=== PATIENT | female | born 1960 | race Caucasian/White ===

== ENCOUNTER 2020-02-26 14:12 | Outpatient (CLI) | payer OTHER, SELFPAY ==
[2020-02-26 14:44] LABS: Basophils Absolute Auto 0.1 K/mm3 (0.0-0.1); Basophils Percent Auto 0.8 % (0.2-1.2); Eosinophils Absolute Auto 0.2 K/mm3 (0-0.3); Eosinophils Percent Auto 2.8 % (0-4.4); Hematocrit 41.1 % (37.0-47.0); Hemoglobin 13.4 g/dL (12.0-15.0); Immature Granulocyte Absolute 0.02 K/mm3 (0.00-0.031); Immature Granulocyte Percent A 0.3 % (0-0.5); Lymphocytes Absolute Auto 2.61 K/mm3 (0.9-3.2); Mean Corpuscular HGB Conc 32.6 g/dl (32-36); Mean Corpuscular Hemoglobin 30.9 pg (26-34); Mean Corpuscular Volume 94.9 fl (80-100); Mean Platelet Volume 9.9 fl (7.4-10.4); Monocytes Absolute Auto 0.6 K/mm3 (0.1-0.6); Monocytes Percent Auto 7.9 % (2.6-8.5); Neutrophils Absolute Auto 3.8 K/mm3 (1.3-6.7); Neutrophils Percent Auto 52.2 % (45.5-73.1); Platelet Count Result 243 k/mm3 (150-375); Red Blood Count 4.33 M/mm3 (4.2-5.4); Red Cell Distribution Width 13.9 % (11.5-14.5); White Blood Count 7.3 K/mm3 (4.5-10.0)
[2020-02-26 14:49] LABS: Alanine Aminotransferase 30 U/L (4-35); Albumin Level 4.4 g/dL (3.5-5.1); Alkaline Phosphatase 80 U/L (38-126); Amylase 65 U/L (30-110); Aspartate Amino Transferase 34 U/L (14-36); Bilirubin,Total 0.3 mg/dL (0.2-1.3); Blood Urea Nitrogen 12 mg/dL (7-17); Calcium 9.2 mg/dL (8.4-10.2); Carbon Dioxide 29 mmol/L (22-30); Chloride 104 mmol/L (98-107); Estimated Glomerular Filt Rate > 60; Glucose 107 mg/dL (65-105); Lipase 71 U/L (23-300); Potassium 3.7 mmol/L (3.4-5.0); Sodium 142 mmol/L (137-145)
== END 2020-02-26 14:13 | disposition home or self-care (01) ==
PROVIDERS: PCP Family Medicine; Visit Provider Nurse Practitioner Family
DX: R10.11 Right upper quadrant pain (principal)
CPT/HCPCS: 36415; 80053; 82150; 83690; 85025

== ENCOUNTER 2020-03-25 10:34 | Outpatient (CLI) | payer OTHER, SELFPAY ==
--- NOTE | ~2020-03-25 | NM_ITS ---
EXAMINATION: NM hepatobiliary w pharm DATE: 03/25/2020 12:56 INDICATION: Other specified diseases of gallbladder. COMPARISON: Hepatobiliary scintigraphy 10/30/2013, CT abdomen and pelvis 03/28/2018 TECHNIQUE: 5.5 mCi Tc-99m mebrofenin (Choletec) was administered intravenously. Scintigraphic images of the abdomen were obtained for one hour. Then, 2 mcg sincalide (Kinevac) IV was administered, and imaging was continued for 30 minutes. FINDINGS: There is normal clearance of radiotracer from the blood pool. There is homogeneous tracer u ptake by the liver. Activity progresses to the bowel and gallbladder. Gallbladder ejection fraction (GBEF) was 89%. Note that most patients with gallbladder dysfunction have GBEF < 35%, which overlaps with the broad normal range of 10-90%. IMPRESSION: 1. Normal hepatobiliary scintigraphy. Reviewed, dictated and finalized at location A.
== END 2020-03-25 10:35 | disposition home or self-care (01) ==
PROVIDERS: PCP Family Medicine; Visit Provider Family Medicine
DX: K82.8 Other specified diseases of gallbladder (principal); R10.11 Right upper quadrant pain
CPT/HCPCS: 78227; A9537; J2805

== ENCOUNTER 2020-04-25 10:44 | Outpatient (CLI) | payer OTHER, SELFPAY ==
--- NOTE | ~2020-04-25 | MR_ITS ---
EXAMINATION: MR wrist LT wo con DATE: 04/25/2020 12:03 INDICATION: Left wrist pain post fall. Suspicion for fracture. TECHNIQUE: Magnetic resonance imaging (MRI) of the left wrist was performed without intravenous contr ast. Sequences performed include axial PD-weighted FSE and PD-weighted FS FSE, coronal PD-weighted FS FSE and T1-weighted SE, and sagittal PD-weighted FS FSE and PD-weighted FSE. COMPARISON: None FINDINGS: Intrinsic ligaments: Increased signal of less than fluid intensity at the radial side of the central membranous portion an d volar component of the scapholunate ligament consistent with partial tear. The dorsal component rem ains normal. The lunotriquetral ligament is normal. Triangular fibrocartilage complex (TFCC): The radial, foveal and styloid attachments of the triangular fibrocartilage complex as well as the do rsal and volar radioulnar ligaments are normal. There is increased signal consistent with partial tea r extending into the ulnar/volar aspect of the central fibrocartilaginous disc near the origin of the intact lunotriquetral ligament. The ulnar collateral ligament and meniscal homologue are normal. The extensor carpi ulnaris tendon sheath is normal. Extensor wrist: Extensor tendons of the wrist are normal. No tenosynovitis. Flexor wrist: The flexor tendons of the wrist are normal. No abnormality in the carpal tunnel with normal median n erve. Guyon's canal: Guyon's canal including the ulnar nerve and artery are normal. Bones/other: Nondisplaced transverse fracture across the scaphoid waist. Bone alignment is normal. No abnormal sig nal in the proximal pole to suggest secondary osteonecrosis. Otherwise normal marrow signal with no o ther fractures or pathologic marrow replacing process. Mild osteoarthritis at the triscaphe joint. Re maining joint spaces are relatively preserved. IMPRESSION: 1. Nondisplaced transverse fracture at the scaphoid waist. 2. Partial tear of the central fibrocartilaginous disc of the triangular fibrocartilage complex. 3. Partial tear of the volar and central components of the scapholunate ligament. 4. Mild triscaphe osteoarthritis. Reviewed, dictated and finalized at location B. IMPRESSION: 1. Nondisplaced transverse fracture at the scaphoid waist. 2. Partial tear of the central fibrocartilaginous disc of the triangular fibroc artilage complex. 3. Partial tear of the volar and central components of the scapholunate ligamen t. 4. Mild triscaphe osteoarthritis.
== END 2020-04-25 10:45 | disposition home or self-care (01) ==
PROVIDERS: PCP Family Medicine; Visit Provider Nurse Practitioner Family
DX: S62.009A Unspecified fracture of navicular [scaphoid] bone of unspecified wrist, initial encounter for closed fracture (principal); S63.592A Other specified sprain of left wrist, initial encounter; M19.032 Primary osteoarthritis, left wrist
CPT/HCPCS: 73221

== ENCOUNTER 2020-06-15 10:19 | Emergency (ER) | payer OTHER, SELFPAY ==
--- NOTE | ~2020-06-15 | XR_ITS ---
XR abdomen/kub 1V 06/15/2020 10:59 Indication: Abdomen pain. Procedure: KUB Comparison: 01/08/2014 Findings: Nonobstructive bowel gas pattern. Moderate colonic fecal loading. There are pelvic phleboli ths. No renal stones are visualized. Mild lumbar spondylosis with levoscoliosis. No acute osseous abn ormality. Impression: 1: No acute abdominal abnormality. Reviewed, dictated and finalized at location B. Impression: 1: No acute abdominal abnormality.
[2020-06-15 10:26] VITALS: BP 160/92; PULSE 88; RESP 16; TEMP 36.1; O2SAT 99
[2020-06-15 10:45] LABS: Basophils Absolute Auto 0.1 K/mm3 (0.0-0.1); Basophils Percent Auto 0.7 % (0.2-1.2); Eosinophils Absolute Auto 0.2 K/mm3 (0-0.3); Eosinophils Percent Auto 2.6 % (0-4.4); Hematocrit 41.6 % (37.0-47.0); Hemoglobin 14.1 g/dL (12.0-15.0); Immature Granulocyte Absolute 0.02 K/mm3 (0.00-0.031); Immature Granulocyte Percent A 0.3 % (0-0.5); Lymphocytes Absolute Auto 2.83 K/mm3 (0.9-3.2); Lymphocytes Percent Auto 38.9 % (18.3-44.2); Mean Corpuscular HGB Conc 33.9 g/dl (32-36); Mean Corpuscular Hemoglobin 30.6 pg (26-34); Mean Corpuscular Volume 90.2 fl (80-100); Mean Platelet Volume 9.7 fl (7.4-10.4); Monocytes Absolute Auto 0.4 K/mm3 (0.1-0.6); Neutrophils Absolute Auto 3.8 K/mm3 (1.3-6.7); Neutrophils Percent Auto 51.5 % (45.5-73.1); Platelet Count Result 250 k/mm3 (150-375); Red Blood Count 4.61 M/mm3 (4.2-5.4); Red Cell Distribution Width 13.6 % (11.5-14.5); White Blood Count 7.3 K/mm3 (4.5-10.0)
--- NOTE | 2020-06-15 10:51 | ED.ABDPAIN ---
HPI - Abdominal Pain General Chief Complaint: Abdominal Pain Stated Complaint: Right flank/rib pain Time Seen by Provider: 06/15/20 10:29 Source: patient and old records reviewed Mode of arrival: ambulatory Limitations: no limitations History of Present Illness HPI narrative: Patient is a 60-year-old female who presents to emergency department for evaluation of lower abdominal pain coupled with constipation and dysuria patient has had the symptoms ongoing for some time now patient on arrival to emergency department is resting comfortably in the room in no distress patient has been trying [id number] medications with minimal improvement for constipation patient notes some mild nausea but denies any emesis rectal bleeding melena or URI symptoms and on arrival is in the room in no distress and does not appear uncomfortable pain is localized to the lower quadrants of the abdomen Related Data Home Medications Medication Instructions Recorded Confirmed gabapentin 06/15/20 Allergies Allergy/AdvReac Type Severity Reaction Status Date / Time clindamycin Allergy Mild Dyspnea / Verified 06/15/20 10:39 SOB levofloxacin Allergy Mild Palpitation Verified 06/15/20 10:39 s morphine Allergy Mild unknown Verified 06/15/20 10:39 amoxicillin Allergy Unknown throat Verified 06/15/20 10:39 closing moxifloxacin Allergy Unknown unknown Verified 06/15/20 10:39 potassium Allergy Unknown throat Verified 06/15/20 10:39 closing MEDICAL GLUE Allergy Unknown BLISTERS Uncoded 05/25/20 07:59 Review of Systems Review of Systems: All systems reviewed & are unremarkable except as noted in HPI and below PMFSH Past Medical History Medical History GERD (gastroesophageal reflux disease) HTN (hypertension) Otitis externa, left Pulmonary embolus Surgical History Surgical History (Updated 06/15/20 @ 10:52 by Ayad Richardson PA-C) History of appendectomy History of D&C History of knee replacement right knee Family History Family History Father Family history of thyroid disease Mother Hypertension Other Cerebrovascular accident Diabetes mellitus Family history of arthritis Social History Social History Smoking status: Never smoker Alcohol intake: never 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 HEAD: Normocephalic, atraumatic. EYES: PERRLA and EOMI. ENT: Nares clear, no rhinorrhea or epistaxis. Mucous membranes moist. CHEST: Clear to auscultation. No respiratory distress. No wheezes rales or rhonchi HEART: Regular rate and rhythm. No murmur heard. Normal peripheral pulses. ABDOMEN: Soft, mild tenderness in the lower quadrants of the abdomen, nondistended, normal active bowel sounds. EXTREMITIES: Normal range of motion. No edema. SKIN: Warm, dry, no rash. NEURO: No focal deficits. Alert and oriented x3. PSYCH: Normal mood and affect. Course Course Emergency Course: Patient evaluated in the emergency room no high risk changes in the blood work or imaging afebrile nontoxic-appearing no distress was hydrated given medications patient will be discharged and treated for constipation and advised to follow with primary care and given reasons to return patient agrees to this plan and is felt appropriate for outpatient reevaluation Vital Signs Vital signs: Vital Signs Temperature 97.0 F L 06/15/20 10:26 Pulse Rate 88 06/15/20 10:26 Respiratory Rate 16 06/15/20 10:26 Blood Pressure 160/92 H 06/15/20 10:26 Pulse Oximetry 99 06/15/20 10:26 Temperature 97.0 F L 06/15/20 10:26 Pulse Rate 88 06/15/20 10:26 Respiratory Rate 16 06/15/20 10:26 Blood Pressure 160/92 H
[2020-06-15 10:54] LABS: Add Urine Microscopic? NO; Appearance Urine Clear (Clear); Bacteria Urine Trace /hpf; Bilirubin Urine Negative (Negative); Blood Urine Negative (Negative); Color Urine Straw (Yellow); Glucose Urine UA Negative (Negative); Ketones Urine Negative (Negative); Leukocyte Esterase Ur Negative LEU/UL (Negative); Mucus Urine Rare /lpf; Nitrate Urine Negative (Negative); Protein Urine Negative (Negative); RBC Urine 0-2 /hpf (0-2); Specific Grav Ur 1.008 (1.001-1.035); Squamous Epithelial Cell Urine Occasional /hpf (Few); Transitional Epi Cells Urine Rare /hpf (None Seen); Urobilinogen Urine Negative mg/dL (<2.0); WBC Urine 0-3 /hpf
[2020-06-15 11:10] LABS: Alanine Aminotransferase 30 U/L (4-35); Albumin Level 4.4 g/dL (3.5-5.1); Alkaline Phosphatase 72 U/L (38-126); Anion Gap 6 mmol/L (8-16); Aspartate Amino Transferase 31 U/L (14-36); Bilirubin,Total 0.7 mg/dL (0.2-1.3); Blood Urea Nitrogen 8 mg/dL (7-17); Carbon Dioxide 35 mmol/L (22-30); Chloride 101 mmol/L (98-107); Estimated CRCL calculation 87 ml/min; Estimated Glomerular Filt Rate > 60; Glucose 103 mg/dL (65-105); Lipase 47 U/L (23-300); Potassium 3.7 mmol/L (3.4-5.0); Sodium 142 mmol/L (137-145)
== END 2020-06-15 12:17 | disposition home or self-care (01) ==
PROVIDERS: Emergency Provider Emergency Medicine; PCP Family Medicine
DX: R10.30 Lower abdominal pain, unspecified (principal); K21.9 Gastro-esophageal reflux disease without esophagitis; I10 Essential (primary) hypertension; Z86.711 Personal history of pulmonary embolism; Z96.651 Presence of right artificial knee joint
CPT/HCPCS: 36415; 74018; 80053; 81003; 83690; 85025; 99283

== ENCOUNTER 2020-12-06 20:26 | Emergency (ER) | payer BC, SELFPAY ==
--- NOTE | ~2020-12-06 | CT_ITS ---
EXAMINATION: CT abdomen pelvis w con EXAM DATE: 12/06/2020 22:59 INDICATION: Abdominal pain, epigastric pain with nausea and vomiting. TECHNIQUE: Spiral CT of the abdomen and pelvis was performed following intravenous injection of 100 m L Omnipaque 350. Axial, coronal and sagittal images of the abdomen and pelvis were reviewed. The do se-length product (DLP) for this examination was 648.63 mGy-cm. The exposure was tailored according to patient size (auto mA exposure control), and iterative reconstruction (ASIR) was used as additiona l dose reduction technique. Comparison is made to prior examination from 03/28/2018. FINDINGS: The liver, spleen, adrenal glands and pancreas are unremarkable. Gallbladder is unremarka ble. No biliary obstruction. Portal and splenic veins are patent. Kidneys enhance symmetrically. There is no hydronephrosis. The uterus is not identified and has likely been surgically resected. The bladder is unremarkable. There is no retroperitoneal or pelvic lymphadenopathy. Small umbilical fat-containing hernia. There are no findings to suggest appendicitis. The stomach and small bowel are unremarkable. There is colonic fluid, correlate for diarrhea. No free intraperitoneal gas. The heart is normal in siz e. There are no pericardial or pleural effusions. The lung bases are unremarkable. There are no os teoblastic or osteolytic lesions identified. IMPRESSION: Colonic fluid could indicate diarrhea or gastroenteritis. Reviewed, dictated and finalized at location A.
--- NOTE | ~2020-12-06 | XR_ITS ---
EXAMINATION: XR chest 2V DATE: 12/06/2020 21:17 INDICATION: Chest pain and weakness TECHNIQUE: PA and lateral views of the chest are obtained. COMPARISON: 06/17/2019 FINDINGS: The lungs are free of acute opacities. There is no pleural effusion or pneumothorax. The ca rdiomediastinal silhouette is normal. There is moderate thoracic spondylosis. IMPRESSION: 1. No acute cardiopulmonary abnormality. Reviewed, dictated and finalized at location A.
--- NOTE | 2020-12-06 20:28 | ECG_ITS ---
Measurements Intervals [place] Rate: 99 P: 45 CT: 143 QRS: -14 QRSD: 105 T: 69 QT: 335 QTc: 431 Interpretive Statements SINUS RHYTHM DELAYED PRECORDIAL R/S TRANSITION INFERIOR INFARCT, AGE INDETERMINATE BORDERLINE ST-T WAVE ABNORMALITY- ANTEROLAT/HIGH LAT LEADS BASELINE WANDER- I, II ABNORMAL ECG Electronically Signed On 12-07-2020 8:30:34 CDT by Farhad Correa D.O.
[2020-12-06 20:34] VITALS: BP 135/71; PULSE 96; RESP 20; TEMP 36.7; O2SAT 96
[2020-12-06 20:53] LABS: Basophils Percent Auto 0.4 % (0.2-1.2); Eosinophils Absolute Auto 0.1 K/mm3 (0-0.3); Eosinophils Percent Auto 1.3 % (0-4.4); Hematocrit 43.5 % (37.0-47.0); Hemoglobin 14.7 g/dL (12.0-15.0); Immature Granulocyte Absolute 0.02 K/mm3 (0.00-0.031); Immature Granulocyte Percent A 0.2 % (0-0.5); Lymphocytes Absolute Auto 0.65 K/mm3 (0.9-3.2); Lymphocytes Percent Auto 6.6 % (18.3-44.2); Mean Corpuscular HGB Conc 33.8 g/dl (32-36); Mean Corpuscular Hemoglobin 30.3 pg (26-34); Mean Corpuscular Volume 89.7 fl (80-100); Mean Platelet Volume 9.7 fl (7.4-10.4); Monocytes Absolute Auto 0.4 K/mm3 (0.1-0.6); Monocytes Percent Auto 3.9 % (2.6-8.5); Neutrophils Absolute Auto 8.7 K/mm3 (1.3-6.7); Neutrophils Percent Auto 87.6 % (45.5-73.1); Platelet Count Result 241 k/mm3 (150-375); Red Blood Count 4.85 M/mm3 (4.2-5.4); Red Cell Distribution Width 13.6 % (11.5-14.5); White Blood Count 9.9 K/mm3 (4.5-10.0)
[2020-12-06 21:04] LABS: Anion Gap 10 mmol/L (8-16); Blood Urea Nitrogen 17 mg/dL (7-17); Calcium 9.2 mg/dL (8.4-10.2); Carbon Dioxide 27 mmol/L (22-30); Chloride 107 mmol/L (98-107); Estimated CRCL calculation 86 ml/min; Estimated Glomerular Filt Rate > 60; Glucose 130 mg/dL (65-105); Potassium 3.5 mmol/L (3.4-5.0); Sodium 144 mmol/L (137-145)
[2020-12-06 21:07] LABS: INR 0.9
[2020-12-06 21:08] LABS: Partial Thromboplastin Time 28.5 SECONDS (22.3-36.8)
[2020-12-06 21:16] LABS: Troponin I < 0.012 ng/mL (0.000-0.034)
--- NOTE | 2020-12-06 22:30 | ED.GENADULT ---
HPI - General Adult General Chief complaint: Weakness Stated complaint: n/v, weak, cp Time Seen by Provider: 12/06/20 22:13 Source: RN notes reviewed History of Present Illness HPI narrative: Patient presents to emergency department from home for weakness. Patient states that starting today she has had numerous episodes of nausea and vomiting. States is associated with weakness as well as pain in the lower midsternal chest in the epigastric region patient states that she has had subjective fever at home but denies any measured fever she denies any shortness of breath diarrhea or any other symptoms. She states she tried taking Mucinex at home with minimal relief Related Data Allergies Allergy/AdvReac Type Severity Reaction Status Date / Time clindamycin Allergy Mild Dyspnea / Verified 12/06/20 20:37 SOB levofloxacin Allergy Mild Palpitation Verified 12/06/20 20:37 s morphine Allergy Mild unknown Verified 12/06/20 20:37 amoxicillin Allergy Unknown throat Verified 12/06/20 20:37 closing moxifloxacin Allergy Unknown unknown Verified 12/06/20 20:37 potassium Allergy Unknown throat Verified 12/06/20 20:37 closing MEDICAL GLUE Allergy Unknown BLISTERS Uncoded 10/01/20 09:10 Review of Systems Review of Systems: Narrative: Gen.: Denies fevers or chills ENT: Denies congestion Respiratory: Denies shortness of breath or cough CV: Reports lower midsternal chest pain GI: See HPI denies burning, urgency, frequency or hematuria Musculoskeletal: Denies back pain or muscle pain Neuro: Denies numbness, tingling, weakness or focal weakness Skin: Denies rash Except as documented, all other systems reviewed and negative PMF Past Medical History Medical History Allergic rhinitis, cause unspecified Apnea Bacterial URI BMI 34.0-34.9,adult Body mass index [BMI] 35.0-35.9, adult (02/23/17) Chest wall tenderness Chronic right hip pain Common cold virus Cough Dietary counseling and surveillance (04/07/17) Dry eyes, bilateral Environmental allergies Essential (primary) hypertension Gastro-esophageal reflux disease without esophagitis GERD (gastroesophageal reflux disease) History of pulmonary embolism HTN (hypertension) Influenza Mass of left thigh Mixed hyperlipidemia Neck pain Obesity (BMI 30-39.9) Ocular hypertension, unspecified eye DUNIA (obstructive sleep apnea) Other chronic pain Other fatigue Otitis externa, left Palpitations Paresthesia of both feet Post-nasal drainage Pulmonary embolus RLQ abdominal pain Snoring Thyroid nodule Surgical History Surgical History History of appendectomy History of D&C History of knee replacement right knee Family History Family History Father Family history of thyroid disease Heart disease Mother Hypertension Sibling No problems noted. 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 No clubbing, cyanosis or edema. NEURO: Awake
[2020-12-06 22:37] VITALS: PULSE 94; RESP 18; O2SAT 97
[2020-12-06] MEDS: SODIUM CHLORIDE 0.9% IV 1,000 ML 999 ML IV CONT (22:43)
[2020-12-06] MEDS: ASPIRIN 81 MG CHEWABLE TABLET 324 MG PO (22:45)
[2020-12-06 23:03] LABS: Alanine Aminotransferase 24 U/L (4-35); Albumin Level 4.5 g/dL (3.5-5.1); Alkaline Phosphatase 76 U/L (38-126); Aspartate Amino Transferase 29 U/L (14-36); Bilirubin,Total 0.6 mg/dL (0.2-1.3); Lipase 44 U/L (23-300)
[2020-12-06 23:40] LABS: Add Urine Microscopic? YES; Appearance Urine Clear (Clear); Bilirubin Urine Negative (Negative); Blood Urine Negative (Negative); Color Urine Yellow (Yellow); Glucose Urine UA Negative (Negative); Ketones Urine Trace mg/dL (Negative); Leukocyte Esterase Ur Negative LEU/UL (Negative); Mucus Urine Rare /lpf; Nitrate Urine Negative (Negative); Protein Urine 1+ mg/dL (Negative); RBC Urine 0-2 /hpf (0-2); Squamous Epithelial Cell Urine Occasional /hpf (Few); Urobilinogen Urine Negative mg/dL (<2.0); WBC Urine 0-3 /hpf
[2020-12-06 23:41] LABS: Specific Grav Ur > 1.060 (1.001-1.035)
[2020-12-07 00:30] VITALS: BP 122/69; PULSE 79; RESP 17; O2SAT 97
[2020-12-07 00:40] LABS: Troponin I < 0.012 ng/mL (0.000-0.034)
[2020-12-07 01:44] VITALS: BP 100/65; PULSE 90; RESP 16; O2SAT 100
== END 2020-12-07 01:46 | disposition home or self-care (01) ==
PROVIDERS: Emergency Medicine; Emergency Provider Emergency Medicine; PCP Family Medicine
DX: R11.2 Nausea with vomiting, unspecified (principal); R10.13 Epigastric pain; I10 Essential (primary) hypertension; K21.9 Gastro-esophageal reflux disease without esophagitis; E78.2 Mixed hyperlipidemia; E66.9 Obesity, unspecified; Z68.34 Body mass index [BMI] 34.0-34.9, adult; G47.33 Obstructive sleep apnea (adult) (pediatric); Z96.651 Presence of right artificial knee joint; Z86.711 Personal history of pulmonary embolism; R94.31 Abnormal electrocardiogram [ECG] [EKG]
CPT/HCPCS: 36415; 71046; 74177; 80048; 80076; 81001; 83690; 84484; 85025; 85610; 85730; 93005; 96361; 96365; 99284; A9270; J0131; J7030; Q9967

== ENCOUNTER → 2020-12-09 07:16 | Outpatient (CLI) | payer BC, SELFPAY ==
[2020-12-09 12:43] LABS: Influenza Control Positive
[2020-12-10 17:42] LABS: SARS-CoV-2 RNA PCR Negative
== END ==
PROVIDERS: PCP Family Medicine; Visit Provider Nurse Practitioner Family
DX: R05 Cough (principal); Z20.822 Contact with and (suspected) exposure to COVID-19
CPT/HCPCS: 87804; C9803; U0003; U0005

== ENCOUNTER 2021-05-20 15:51 | Emergency (ER) | payer BC, SELFPAY ==
--- NOTE | ~2021-05-20 | CT_ITS ---
EXAMINATION: CTA chest PE protocol DATE: 05/20/2021 19:15 INDICATION: Tachycardia. Elevated d-dimer. TECHNIQUE: Computed tomography (CT) pulmonary angiogram of the chest was performed with 100 mL Omnipa que-350 intravenous contrast. Additional 3D reconstructions utilizing coronal maximum intensity proje ction (MIP) were performed. Automated exposure control and iterative reconstruction technique were em ployed. The dose-length product was 458.91 mGy-cm. COMPARISON: CT dated 10/24/2015 and 07/01/2010 FINDINGS: Excellent contrast opacification of the pulmonary arteries. There is moderate streak artifact from de nse contrast in the superior vena cava and right atrium. Mild scattered respiratory motion artifact w hich does not significantly limit evaluation. No pulmonary embolism. Mild dependent atelectasis in th e bilateral lower lobes. No pneumonia, pulmonary edema, pleural effusion or pneumothorax. Heart size is normal. No pericardial effusion. Thoracic aorta is normal in caliber with no dissection. Again see n is a fluid attenuation paraspinal lesion at the right side of T4 and T5 which has increased to 3.2 x 2.1 cm from the earlier measurement of 2.7 x 1.7 cm in 2015 and 2.3 x 1.4 cm in 2009. No pathologic ally enlarged thoracic lymphadenopathy. Small sliding-type hiatal hernia. 8 mm exophytic lesion at th e upper pole of the left kidney with greater than fluid attenuation. There are bridging osteophytes a t multiple levels in the spine, consistent with diffuse idiopathic skeletal hyperostosis (DISH). IMPRESSION: 1. No pulmonary embolus more other acute cardiopulmonary disease. 2. 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 3. Small sliding-type hiatal hernia. 4. Indeterminate 8 mm exophytic left renal lesion with greater than fluid attenuation which could rep resent a proteinaceous/hemorrhagic cyst although solid neoplasm cannot be excluded. Consider follow-u p pre and postcontrast MRI for further evaluation. Reviewed, dictated and finalized at location A. IMPRESSION: 1. No pulmonary embolus more other acute cardiopulmonary disease. 2. Chronic likely benign right mid thoracic paraspinal fluid attenuation cystic mass which has mildly increased in size since 2010 most likely a foregut dupli cation cyst. 3. Small sliding-type hiatal hernia. 4. Indeterminate 8 mm exophytic left renal lesion with greater than fluid atten uation which could represent a proteinaceous/hemorrhagic cyst although solid ne oplasm cannot be excluded. Consider follow-up pre and postcontrast MRI for furt her evaluation.
--- NOTE | ~2021-05-20 | XR_ITS ---
EXAMINATION: XR chest 1V portable EXAM DATE: 05/20/2021 16:21 INDICATION: Fever/cough, body aches, hypertension. History PE. TECHNIQUE: Portable AP frontal chest x-ray was obtained. Comparison is made to prior examination from 12/06/2020. FINDINGS: Small amount of linear left basilar atelectasis unchanged. The lungs are otherwise clear. There are no pleural effusions. The cardiomediastinal silhouette is within normal limits. There is no pneumothorax suspected. The bones and soft tissues are unremarkable. IMPRESSION: No acute cardiopulmonary findings. Reviewed, dictated and finalized at location B.
[2021-05-20 15:54] VITALS: BP 140/88; PULSE 116; RESP 18; TEMP 37; O2SAT 98
[2021-05-20 16:40] LABS: Basophils Absolute Auto 0.1 K/mm3 (0.0-0.1); Basophils Percent Auto 1.3 % (0.2-1.2); Eosinophils Absolute Auto 0.1 K/mm3 (0-0.3); Eosinophils Percent Auto 1.3 % (0-4.4); Hematocrit 41.6 % (37.0-47.0); Hemoglobin 14.3 g/dL (12.0-15.0); Immature Granulocyte Absolute 0.05 K/mm3 (0.00-0.031); Lymphocytes Absolute Auto 1.15 K/mm3 (0.9-3.2); Mean Corpuscular HGB Conc 34.4 g/dl (32-36); Mean Corpuscular Hemoglobin 30.8 pg (26-34); Mean Corpuscular Volume 89.7 fl (80-100); Mean Platelet Volume 9.7 fl (7.4-10.4); Monocytes Percent Auto 20.4 % (2.6-8.5); Neutrophils Absolute Auto 2.5 K/mm3 (1.3-6.7); Platelet Count Result 212 k/mm3 (150-375); Red Blood Count 4.64 M/mm3 (4.2-5.4); Red Cell Distribution Width 14.2 % (11.5-14.5); White Blood Count 4.8 K/mm3 (4.5-10.0)
[2021-05-20 16:42] LABS: Add Urine Microscopic? YES; Appearance Urine Clear (Clear); Bilirubin Urine Negative (Negative); Blood Urine Negative (Negative); Color Urine Straw (Yellow); Glucose Urine UA Negative (Negative); Ketones Urine Negative (Negative); Leukocyte Esterase Ur Trace LEU/UL (Negative); Nitrate Urine Negative (Negative); Protein Urine Negative (Negative); RBC Urine 0-2 /hpf (0-2); Specific Grav Ur 1.008 (1.001-1.035); Squamous Epithelial Cell Urine Rare /hpf (Few); Urobilinogen Urine Negative mg/dL (<2.0); WBC Urine 0-3 /hpf
[2021-05-20 16:47] LABS: Lactic Acid Reflex 0.8 mmol/L (0.7-2.1)
[2021-05-20 16:49] LABS: Alanine Aminotransferase 26 U/L (4-35); Albumin Level 4.7 g/dL (3.5-5.1); Alkaline Phosphatase 75 U/L (38-126); Anion Gap 9 mmol/L (8-16); Aspartate Amino Transferase 30 U/L (14-36); Bilirubin,Total 0.4 mg/dL (0.2-1.3); Blood Urea Nitrogen 9 mg/dL (7-17); Calcium 9.1 mg/dL (8.4-10.2); Carbon Dioxide 26 mmol/L (22-30); Chloride 102 mmol/L (98-107); Estimated CRCL calculation 82 ml/min; Estimated Glomerular Filt Rate > 60; Glucose 98 mg/dL (65-110); Potassium 4.1 mmol/L (3.4-5.0); Sodium 137 mmol/L (137-145)
--- NOTE | 2021-05-20 17:04 | ED.FEVER ---
HPI - Fever General Chief Complaint: Fever Stated Complaint: FEVER, H/A, STIFF NECK Time Seen by Provider: 05/20/21 16:16 Source: patient Mode of arrival: ambulatory Limitations: no limitations History of Present Illness HPI Narrative: Patient is a 61-year-old female complaining of fever, body aches, cough, nasal congestion, neck pain, headache, dysuria that started yesterday. Patient is not vaccinated from [place]. Patient denies any chest pain, shortness of breath, abdominal pain, nausea, vomiting, or diarrhea. Related Data Allergies Allergy/AdvReac Type Severity Reaction Status Date / Time clindamycin Allergy Mild Dyspnea / Verified 05/20/21 15:57 SOB levofloxacin Allergy Mild Palpitation Verified 05/20/21 15:57 s morphine Allergy Mild unknown Verified 05/20/21 15:57 amoxicillin Allergy Unknown throat Verified 05/20/21 15:57 closing moxifloxacin Allergy Unknown unknown Verified 05/20/21 15:57 potassium Allergy Unknown throat Verified 05/20/21 15:57 closing MEDICAL GLUE Allergy Unknown BLISTERS Uncoded 03/30/21 07:46 Review of Systems Review of Systems: All systems reviewed & are unremarkable except as noted in HPI and below Constitutional: Constitutional: Denies excessive sweating, Denies fatigue, Denies headache(s), Denies lethargy, Denies malaise, Denies weakness and Denies weight loss Eyes: Eyes: Denies blurry vision, Denies change in vision and Denies loss of vision ENT: Denies dizziness, Denies ear discharge, Denies headache(s), Denies lip swelling, Denies epistaxis, Denies nasal congestion, Denies neck pain, Denies throat swelling and Denies tongue swelling Cardiovascular: Cardiovascular: Denies chest pain, Denies chest pain at rest, Denies chest pain with activity, Denies diaphoresis, Denies rapid heart rate, Denies edema, Denies irregular heart rhythm, Denies lightheadedness, Denies palpitations, Denies dyspnea and Denies dyspnea on exertion Respiratory: Respiratory: Denies chest congestion, Denies hemoptysis, Denies dyspnea and Denies dyspnea on exertion Gastrointestinal: Gastrointestinal: Denies abdominal pain, Denies melena, Denies hematochezia, Denies diarrhea, Denies nausea, Denies vomiting and Denies hematemesis Musculoskeletal: Musculoskeletal: Denies abnormal gait, Denies deformity, Denies joint swelling, Denies limited range of motion, Denies neck pain and Denies numbness Neurologic: Denies Abnormal speech present, Denies abnormal gait, Denies confusion, Denies dizziness, Denies focal weakness, Denies loss of vision, Denies numbness, Denies Other visual disturbances, Denies Sensory deficit (Neuro) and Denies weakness Psychiatric: Psychiatric: Denies confusion, Denies depression, Denies auditory hallucinations, Denies homicidal ideation and Denies suicidal ideation Endocrine: Endocrine: Denies cold intolerance, Denies excessive sweating, Denies fatigue, Denies heat intolerance and Denies palpitations Hematologic/Lymphatic: Hematologic/Lymphatic: Denies easy bleeding and Denies easy bruising Allergic/Immunologic: Allergic/Immunologic: Denies lip swelling, Denies throat swelling and Denies tongue swelling PMFSH Past Medical History Medical History Allergic rhinitis, cause unspecified Apnea Bacterial URI BMI 32.0-32.9,adult BMI 33.0-33.9,adult BMI 34.0-34.9,adult Body mass index [BMI] 35.0-35.9, adult (02/23/17) Chest wall tenderness Chronic right hip pain Common cold virus Cough Dietary counseling and surveillance (04/07/17) Dry eyes, bilateral Environmental allergies Essential (primary) hypertension Gastro-esophageal reflux disease without esophagitis GERD (gastroesophageal reflux disease) History of pulmonary embolism HTN (hypertension) Influenza Mass of left thigh Mixed hyperlipidemia Neck pain Obesity (BMI 30-39.9) Ocular hypertension, unspecified eye DUNIA (obstructive sleep apnea) Other chronic pain Other fatigue Otitis
[2021-05-20 18:03] VITALS: BP 137/76; PULSE 94; RESP 17; O2SAT 96
[2021-05-20] MEDS: SODIUM CHLORIDE 0.9% IV 1,000 ML 999 ML IV CONT (18:18)
[2021-05-20 20:34] VITALS: BP 130/70; PULSE 80; RESP 18; O2SAT 96
[2021-05-21 18:26] LABS: SARS-CoV-2 RNA PCR Positive
== END 2021-05-20 20:36 | disposition home or self-care (01) ==
PROVIDERS: Family Medicine; Emergency Provider Emergency Medicine; PCP Family Medicine
DX: U07.1 COVID-19 (principal); I10 Essential (primary) hypertension; K21.9 Gastro-esophageal reflux disease without esophagitis; E78.2 Mixed hyperlipidemia; H04.123 Dry eye syndrome of bilateral lacrimal glands; G47.33 Obstructive sleep apnea (adult) (pediatric); E66.9 Obesity, unspecified; Z68.32 Body mass index [BMI] 32.0-32.9, adult; Z86.711 Personal history of pulmonary embolism; Z96.651 Presence of right artificial knee joint; K44.9 Diaphragmatic hernia without obstruction or gangrene; N28.9 Disorder of kidney and ureter, unspecified; G95.9 Disease of spinal cord, unspecified
CPT/HCPCS: 36415; 71045; 71275; 80053; 81001; 83605; 85025; 85380; 87040; 96360; 99284; C9803; J7030; Q9967; U0003; U0005

== ENCOUNTER 2021-08-27 07:54 | Outpatient (CLI) | payer BC, SELFPAY ==
[2021-08-27 08:53] LABS: D Dimer 0.61 ug/mL (<0.48)
== END 2021-08-27 07:55 | disposition home or self-care (01) ==
LOC: ANHLAB 07:56
PROVIDERS: PCP Family Medicine; Visit Provider Family Medicine
DX: D68.9 Coagulation defect, unspecified (principal)
CPT/HCPCS: 36415; 85380

== ENCOUNTER → 2021-10-20 10:57 | Outpatient (CLI) | payer BC, SELFPAY ==
--- NOTE | ~2021-10-20 | MR_ITS ---
EXAMINATION: MR renal wo/w con DATE: 10/20/2021 11:57 INDICATION: Other specified disorders of kidney and ureter. Left kidney mass. TECHNIQUE: Magnetic resonance imaging (MRI) of the abdomen was performed without and with 19 mL Multi Darrion intravenous contrast. Sequences included coronal T2-weighted FS FSE, coronal and axial FIESTA F S, coronal LAVA-flex, axial LAVA, axial T2-weighted FSE, axial T1-weighted dual-echo FSPGR, axial STI R FSE, and axial DWI. Postcontrast sequences included coronal LAVA-flex and a time course of axial LA VA. COMPARISON: Chest CT 05/20/2021, CT abdomen and pelvis 12/06/2020 FINDINGS: There is diffuse hepatic steatosis. The gallbladder, spleen, pancreas, adrenal glands, and right kidn ey are normal. There is a 9 mm hemorrhagic cyst in left kidney. There are no dilated loops of bowel. There is a small sliding hiatal hernia. There are no pathologically enlarged lymph nodes. There is no free intraperitoneal fluid. IMPRESSION: 1. 9 mm benign hemorrhagic cyst in left kidney. Reviewed, dictated and finalized at location A. [employer]AL
[2021-10-20 11:22] LABS: Estimated Glomerular Filt Rate > 60
== END ==
PROVIDERS: PCP Family Medicine; Visit Provider Family Medicine
DX: N28.1 Cyst of kidney, acquired (principal); N28.89 Other specified disorders of kidney and ureter; K76.0 Fatty (change of) liver, not elsewhere classified; K44.9 Diaphragmatic hernia without obstruction or gangrene
CPT/HCPCS: 74183; A9577

== ENCOUNTER 2021-11-04 08:54 | Outpatient (CLI) | payer BC, SELFPAY ==
--- NOTE | 2021-11-04 09:03 | EST_ITS ---
Patient Info Name: Peggy De León Age: 61 years : 1960 Gender: Female Ht: 66 in Wt: 211 lbs BSA: 2.15 m2 HR: 72 bpm BP: 117 / 82 mmHg Heart Rhythm: Sinus Rhythm Exam Date: 11/04/2021 9:22 AM Exam Location: [facility] Stress Patient Status: Outpatient Admit Date: 11/04/2021 Staff Ordering Physician: Johnna Mendes Attending Provider: Johnna Mendes Exercise Technologist: Sarah Remy CT Exercise Physician: Farhad Correa DO Exam Type: CA stress test treadmill Study Info Indications R07.9 - Chest pain, unspecified A treadmill exercise stress test was performed. Summary 1. 1. Negative Rajiv exercise stress test for ischemic ST changes by ECG criteria. 2. 2. Reduced functional capacity, achieving 6.5 METs of workload. 3. 3. Hypertensive response to exercise. 4. 4. Appropriate HR response to exercise. 5. 5. Appropriate HR recovery at 1 minute post exercise. 6. 6. No imaging with stress testing. 7. 7. Patient informed of the above results. Protocol: Rajiv Stress ECG Details Stage: REST Duration (min): 1 min : 8 sec Speed (mph): 0.0 Grade (%): 0 HR (bpm): 72 SBP (mmHg): 117 DBP (mmHg): 82 METS: --- Stage: REST Duration (min): 4 min : 51 sec Speed (mph): 0.0 Grade (%): 0 HR (bpm): 81 SBP (mmHg): 117 DBP (mmHg): 82 METS: --- Stage: STAGE 1 Duration (min): 1 min : 0 sec Speed (mph): 1.7 Grade (%): 10 HR (bpm): 115 SBP (mmHg): 117 DBP (mmHg): 82 METS: --- Stage: STAGE 1 Duration (min): 2 min : 0 sec Speed (mph): 1.7 Grade (%): 10 HR (bpm): 128 SBP (mmHg): 117 DBP (mmHg): 82 METS: --- Stage: STAGE 1 Duration (min): 3 min : 0 sec Speed (mph): 1.7 Grade (%): 10 HR (bpm): 131 SBP (mmHg): 189 DBP (mmHg): 67 METS: --- Stage: STAGE 2 Duration (min): 1 min : 0 sec Speed (mph): 2.5 Grade (%): 12 HR (bpm): 144 SBP (mmHg): 189 DBP (mmHg): 67 METS: --- Stage: STAGE 2 Duration (min): 1 min : 0 sec Speed (mph): 2.5 Grade (%): 12 HR (bpm): 144 SBP (mmHg): 189 DBP (mmHg): 67 METS: --- Stage: RECOVERY Duration (min): 0 min : 59 sec Speed (mph): 0.0 Grade (%): 0 HR (bpm): 119 SBP (mmHg): 204 DBP (mmHg): 77 METS: --- Stage: RECOVERY Duration (min): 1 min : 59 sec Speed (mph): 0.0 Grade (%): 0 HR (bpm): 86 SBP (mmHg): 204 DBP (mmHg): 77 METS: --- Stage: RECOVERY Duration (min): 2 min : 41 sec Speed (mph): 0.0 Grade (%): 0 HR (bpm): 82 SBP (mmHg): 176 DBP (mmHg): 78 METS: --- Rest HR: 81 bpm Peak HR: 145 bpm Rest Sys BP: 117 mmHg Peak Sys BP: 204 mmHg Max Pred HR: 159 bpm % Max Pred HR: 91 % Target HR: 135 bpm Max RPP: 29,580 bpm*mmHg Mcdonald Score: -1 Termination Reason: Reached target heart rate or workload Cardiac Symptoms: Shortness of breath Max ST Seg Deviation: -1.00 mm Total Time: 4 min : 0 se
== END 2021-11-04 08:55 | disposition home or self-care (01) ==
LOC: ANHCARD 08:55
PROVIDERS: PCP Family Medicine; Visit Provider Nurse Practitioner Family
DX: R06.02 Shortness of breath (principal); R07.9 Chest pain, unspecified; R53.83 Other fatigue
CPT/HCPCS: 93017

== ENCOUNTER 2022-03-08 15:14 | Outpatient (CLI) | payer BC, SELFPAY ==
--- NOTE | ~2022-03-08 | CT_ITS ---
EXAMINATION: CTA chest PE protocol DATE: 03/08/2022 16:24 CDT INDICATION: Bilateral DVT. Chest pain and cough. History of pulmonary embolism. TECHNIQUE: Computed tomographic angiography (CTA) of the chest was performed with 100 mL Omnipaque-35 0 intravenous contrast. The dose-length product was 300.05 mGy-cm. Maximum intensity projection 3D-re constructions of the aorta and other arteries were constructed by the technologist on a separate work station. COMPARISON: CT dated 05/20/2021. FINDINGS: Study is technically adequate without evidence for pulmonary embolism. There is mild athero sclerosis. Cardiomegaly. No significant pleural or pericardial effusion. No thoracic lymphadenopathy. 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 The upper abdomen is unremarkable. There is depen dent atelectasis. No endobronchial lesions. No pneumothorax. IMPRESSION: 1. No acute cardiopulmonary disease. No evidence for pulmonary embolism. Reviewed, dictated and finalized at location A.
[2022-03-08 15:52] LABS: Estimated Glomerular Filt Rate > 60
== END 2022-03-08 15:15 | disposition home or self-care (01) ==
PROVIDERS: PCP Family Medicine; Visit Provider Family Medicine
DX: I82.403 Acute embolism and thrombosis of unspecified deep veins of lower extremity, bilateral (principal); R07.9 Chest pain, unspecified
CPT/HCPCS: 71275; Q9967

== ENCOUNTER 2022-04-05 09:37 | Outpatient (CLI) | payer BC, SELFPAY ==
--- NOTE | ~2022-04-05 | XR_ITS ---
EXAMINATION: XR chest 2V 04/05/2022 09:47 INDICATION: Cough. PROCEDURE: 2 view chest COMPARISON: Comparison to multiple prior studies sequentially, with oldest reviewed study dated 12/2011. FINDINGS: The lungs are clear. The cardiomediastinal silhouette is within normal limits. There are no pleural effusions. There is no pneumothorax suspected. IMPRESSION: 1: NO ACUTE CARDIOPULMONARY DISEASE. Reviewed, dictated and finalized at location A.
== END 2022-04-05 09:38 | disposition home or self-care (01) ==
LOC: ANHIMG 09:39
PROVIDERS: PCP Family Medicine; Visit Provider Nurse Practitioner Family
DX: R05.9 Cough, unspecified (principal)
CPT/HCPCS: 71046

== ENCOUNTER 2022-06-21 16:06 | Outpatient (CLI) | payer BC, SELFPAY ==
--- NOTE | ~2022-06-21 | XR_ITS ---
XR ankle LT min 3V DATE: 06/21/2022 16:23 INDICATION: Ankle effusion. No injury. TECHNIQUE: 4 views COMPARISON: left foot FINDINGS: Prominent plantar calcaneal enthesopathy and mild posterior calcaneal enthesopathy appears stable since 12/22/2014. No fracture or dislocation of the ankle or disruption of the ankle mortise. No periosteal reaction or bone destruction. 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 IMPRESSION: Osteophytic changes at the tarsal and tarsometatarsal joints Plantar and posterior calcaneal enthesopathy Reviewed, dictated and finalized at location A.
== END 2022-06-21 16:07 | disposition home or self-care (01) ==
PROVIDERS: PCP Family Medicine; Visit Provider Nurse Practitioner Family
DX: M25.472 Effusion, left ankle (principal); M77.32 Calcaneal spur, left foot
CPT/HCPCS: 73610